=== PATIENT | male | born 1995 | race Two or more races ===

== ENCOUNTER 2025-07-29 21:18 | Emergency (ER) | payer SELFPAY ==
[~2025-07-29] VITALS: Ht 172.7 cm; Wt 80.0 kg
[2025-07-29 21:25] VITALS: O2SAT 97
[2025-07-29 23:22] LABS: BASOPHILS % 0.3 % (0.0-2.0); EOSINOPHILS % 1.6 % (0.0-5.0); HEMATOCRIT. 45.8 % (42.0-52.0); HEMOGLOBIN. 15.2 g/dL (14.0-18.0); LYMPHOCYTES % 12.3 % (20.0-50.0); MEAN PLATELET VOLUME 9.3 fl (7.4-10.4); MONOCYTES % 6.5 % (2.0-8.0); NEUTROPHILS % 79.3 % (40.0-76.0); PLATELET 173 x1000/uL (130-400); RED BLOOD CELL COUNT 4.99 mill/uL (4.7-6.1); RED CELL DISTRIBUTION WIDTH 12.7 % (11.6-14.6)
[2025-07-29 23:34] LABS: CREATININE 0.8 mg/dL (0.6-1.3); UREA NITROGEN BLOOD 7 mg/dL (9-23)
[2025-07-29 23:36] LABS: ASPARTATE AMINOTRANSFERASE 58 IU/L (<34); BILIRUBIN DIRECT 0.1 mg/dL (<=3.0)
[2025-07-29 23:37] LABS: BILIRUBIN TOTAL 0.5 mg/dL (0.1-1.0); PROTEIN TOTAL 7.1 g/dL (6.0-8.3)
[2025-07-30] MEDS: SODIUM CHLORIDE 0.9% 1,000 ML IV ONE (00:10)
[2025-07-30 02:33] LABS: *AMPHETAMINES SCREEN URINE NEGATIVE (NEGATIVE); *BARBITURATES SCREEN URINE NEGATIVE (NEGATIVE); *BENZODIAZEPINES SCREEN URINE NEGATIVE (NEGATIVE); *COCAINE SCREEN URINE NEGATIVE (NEGATIVE); CANNABINOID URINE SCREEN NEGATIVE (NEGATIVE); ECSTASY MDMA SCREEN URINE NEGATIVE (NEGATIVE); METHADONE URINE SCREEN NEGATIVE (NEGATIVE); OPIATES URINE SCREEN NEGATIVE (NEGATIVE); PHENCYCLIDINE URINE SCREEN NEGATIVE (NEGATIVE)
[2025-07-30 03:48] VITALS: BP 102/48; PULSE 60; RESP 12; TEMP 36.8; O2SAT 100
== END 2025-07-30 04:57 | disposition home or self-care (01) ==
LOC: ER 21:18
DX: F10.129 Alcohol abuse with intoxication, unspecified (principal); Z79.899 Other long term (current) drug therapy; Y90.9 Presence of alcohol in blood, level not specified
CPT/HCPCS: 36415; 80048; 80076; 80305; 80320; 82140; 82550; 85025; 96360; 96361; 99284; A4606; G0480

== ENCOUNTER 2025-09-10 16:05 | Emergency (ER) | payer SELFPAY ==
[~2025-09-10] VITALS: Ht 172.7 cm; Wt 100.0 kg
[2025-09-10 16:09] VITALS: BP 131/72; PULSE 98; RESP 20; TEMP 36.9; O2SAT 99
== END 2025-09-10 16:26 | disposition left against medical advice (07) ==
LOC: ER 16:05
DX: R41.82 Altered mental status, unspecified (principal); Z98.890 Other specified postprocedural states
CPT/HCPCS: 99281